=== PATIENT | female | born 1970 | race Caucasian/White ===

== ENCOUNTER → 2018-06-27 | Outpatient (CLI) | payer BC ==
--- NOTE | 2018-06-27 10:16 | KCIC ---
History: Routine screening. Technique: Bilateral digital mammographic routine views were obtained with CAD - computer aided detection. Comparison: June 22, 2016. Findings: Breast Tissue Density D :The breast tissue is extremely dense, lowering the sensitivity of the examination. There is an asymmetric tissue density in the posterior lateral right breast CC view only. There are no suspicious microcalcifications or areas of architectural distortion. Impression: Asymmetric tissue density on the right. Recommend ultrasound evaluation. The patient and the clinical service will be contacted by the radiology staff for further instructions. BI-RADS Category 0: Incomplete: Need additional imaging evaluation. Your mammogram demonstrates that you have dense breast tissue, which could hide abnormalities, and if you have other risk factors for breast cancer that have been identified, you might benefit from supplemental screening tests that may be suggested by your ordering physician. Dense breast tissue, in and of itself, is a relatively common condition. This information is not provided to cause undue concern, but rather to raise your awareness and to promote discussion with your physician regarding the presence of other risk factors, in addition to dense breast tissue. A report of your mammography results will be sent to you and your physician. You should contact your physician if you have any questions or concerns regarding this report. A mammogram does not have 100% sensitivity and therefore a negative imaging study should not delay further work up of a suspicious abnormality. The patient will receive a letter with the results in the mail. Patient information is entered into the reminder system with a target due date for the next screening mammogram. The patient will receive a reminder. "Our facility is accredited by the [employer] Mammography [employer]." Electronically signed by: Hair Canseco III, MD (06/27/2018 10:12 AM) [id number]
== END | disposition home or self-care (01) ==
LOC: KCIC MAMMO 08:11
PROVIDERS: ATTEND Nurse Practitioner Family
DX: Z12.31 Encounter for screening mammogram for malignant neoplasm of breast (principal)
CPT/HCPCS: 77067

== ENCOUNTER → 2018-12-09 | Outpatient (CLI) | payer BC, OTHER ==
--- NOTE | 2018-12-09 14:25 | KCIC ---
Right breast ultrasound: Reason for examination: Nodular density on screening mammogram. Comparison is made to mammographic exam dated 06/27/2018. Right whole breast ultrasound including evaluation of all 4 quadrants and the retroareolar and axillary regions of the right breast was performed. Ultrasound examination was performed of the lateral right breast and right axilla. There are multiple anechoic and hypoechoic lesions consistent with simple cysts and fibrocystic lesions. The largest cyst measures 2.9 cm in size and is at the 12:00 position 4 cm from the nipple. No solid suspicious-appearing nodules are seen. No abnormal appearing lymph nodes are seen in the axilla. IMPRESSION: Multiple cystic and fibrocystic type lesion in the right breast. The largest cyst measures 2.9 cm in greatest dimension. No solid suspicious-appearing nodules are seen. Recommend however reevaluation with ultrasound in 6 months at the time of bilateral mammograms. BI-RADS Category 3: Probably Benign. "Our facility is accredited by the [employer] Mammography [employer]." This patient's information has been entered into a reminder system for the patient to be notified with the results of her examination and a target date for the next mammogram. Electronically signed by: Allie Mcdaniels MD (12/09/2018 2:22 PM) [id number]
== END | disposition home or self-care (01) ==
LOC: KCIC US 13:18
PROVIDERS: ATTEND Nurse Practitioner Family
DX: N60.01 Solitary cyst of right breast (principal); N64.89 Other specified disorders of breast
CPT/HCPCS: 76641

== ENCOUNTER → 2019-06-30 | Outpatient (CLI) | payer OTHER ==
--- NOTE | 2019-06-30 15:19 | KCIC ---
Bilateral diagnostic digital mammograms with 3-D tomosynthesis: Reason for examination: Follow-up nodules. Comparison is made to previous studies dated 06/27/2018 and 06/22/2016. Bilateral mammograms in CC and oblique projections were obtained with 2-D imaging and 3-D tomosynthesis imaging on a Siemens Inspiration unit and reviewed on the workstation. Interpretation was made with the benefit of CAD. The skin and nipples show no abnormalities. No abnormal axillary lymph nodes are seen. The breast parenchyma is extremely dense. (Breast density: Category D.) There appear to be circumscribed nodules bilaterally. These likely represent cysts. Ultrasound to follow. There are no suspicious calcifications seen. Impression: Circumscribed nodules within the dense parenchyma. Ultrasound to follow. Your patient's mammogram demonstrates that she has dense breast tissue (breast density category C or D), which could hide abnormalities, and if she has other risk factors for breast cancer that have been identified, she might benefit from supplemental screening tests that may be suggested by you as her ordering physician. Dense breast tissue, in and of itself, is a relatively common condition. Therefore, this information is not provided to cause undue concern, but rather to raise your awareness and to promote discussion with your patient regarding the presence of other risk factors, in addition to dense breast tissue. Your patient's mammography results will be sent to her. BI-RAD Category 0: Incomplete. Needs additional imaging evaluation. Bilateral breast ultrasound: Comparison is made to previous right breast exam dated 12/09/2018. Bilateral whole breast ultrasound including evaluation of all 4 quadrants and the retroareolar and axillary regions of both breasts was performed. In the right breast, there are multiple anechoic lesions consistent with cysts with the largest cyst at the 12:00 position 5 cm from the nipple measuring 3.4 cm in greatest dimension. No solid suspicious-appearing nodules are seen. No abnormal appearing lymph nodes are seen in the right axilla. In the left breast, there are multiple small anechoic lesions consistent with cysts with the largest at the 11:00 position 4 cm from the nipple measuring 1.2 cm in greatest dimension. No solid or suspicious-appearing lesions are seen. No abnormal appearing lymph nodes is seen in the axilla. IMPRESSION: Dense breast parenchyma with multiple lesions consistent with cysts bilaterally. No suspicious abnormalities are seen. Recommend 6 month follow-up with ultrasound. BI-RADS Category 3: Probably Benign. "Our facility is accredited by the [employer] Mammography [employer]." This patient's information has been entered into a reminder system for the patient to be notified with the results of her examination and a target date for the next mammogram. Electronically signed by: Allie Mcdaniels MD (06/30/2019 3:16 PM) [id number]
== END | disposition home or self-care (01) ==
LOC: KCIC MAMMO 13:05
PROVIDERS: ATTEND Family Medicine
DX: N64.89 Other specified disorders of breast (principal); R92.2 Inconclusive mammogram
CPT/HCPCS: 76641; 77066; G0279; 77062